=== PATIENT | male | born 1985 | race Caucasian/White ===

== ENCOUNTER 2019-05-12 12:25 | Emergency (ER) | payer SELFPAY ==
[~2019-05-12] VITALS: Ht 177.8 cm; Wt 81.8 kg
[2019-05-12] MEDS ORDERED: LIDOCAINE 3% CREAM 85 GM TUBE TP ONE (14:15)
[2019-05-12] MEDS ORDERED: BACITRACIN 0.9 GM PACKET OINTMENT TP ONE (14:15)
[2019-05-12] MEDS ORDERED: PERTUSS(ACELL),DIPH,TET VAC/PF 0.5 ML VIAL IM ONE (14:45)
[2019-05-12 15:09] VITALS: BP 140/77
== END 2019-05-12 15:10 | disposition home or self-care (01) ==
LOC: EMS 12:25
DX: S31.21XA Laceration without foreign body of penis, initial encounter (principal); F17.210 Nicotine dependence, cigarettes, uncomplicated; W26.8XXA Contact with other sharp object(s), not elsewhere classified, initial encounter; Y93.89 Activity, other specified; Y92.89 Other specified places as the place of occurrence of the external cause; Y99.8 Other external cause status
CPT/HCPCS: 90471; 90715; 99406

== ENCOUNTER 2024-08-02 15:18 | Emergency (ER) | payer OTHER ==
[~2024-08-02] VITALS: Ht 180.3 cm; Wt 86.4 kg
[2024-08-02 22:41] VITALS: BP 147/98; PULSE 98; RESP 18; TEMP 97.9; O2SAT 99
== END 2024-08-02 22:48 | disposition home or self-care (01) ==
LOC: EMS 15:18
DX: S80.11XA Contusion of right lower leg, initial encounter (principal); W22.8XXA Striking against or struck by other objects, initial encounter; Y93.89 Activity, other specified; Y92.89 Other specified places as the place of occurrence of the external cause; Y99.0 Civilian activity done for income or pay
CPT/HCPCS: 99284; 73562-TC; 73590-TC; Z7502